=== PATIENT | male | born 1935 | race Caucasian/White ===

== ENCOUNTER 2018-06-27 11:49 | Day surgery (SDC) | payer MEDICARE ==
[~2018-06-27] VITALS: Ht 175.3 cm; Wt 79.4 kg
[~2018-06-27 11:49] MED LIST: AMLODIPINE5 MG PO; ASPIRIN LOW DOS81 M2 PO; CLOPIDOGREL75 MG PO; COQ10200 MG PO; CRESTOR10 MG PO; L-ARGININE500 M2 PO; LISINOPRIL20 MG PO; MULTI VIT PO; OMEPRAZOLE20 M2 PO; TAMSULOSIN HCL0.4 MG PO; TRAMADOL HCL50 MG PO; VIAGRA100 MG PO
[2018-06-27 15:03] VITALS: BP 143/72
== END 2018-06-27 15:10 | disposition home or self-care (01) ==
LOC: ENDO 11:49 → ORM 16:05 → ENDO 16:50 → ORM 17:05 → ENDO 17:15 → ORM 17:30 → ENDO 17:55
PROVIDERS: ATTEND Internal Medicine Gastroenterology
PROC: 0DB58ZX Excision of Esophagus, Via Natural or Artificial Opening Endoscopic, Diagnostic (ICD-10-PCS; principal; 2018-06-27)
DX: K22.70 Barrett's esophagus without dysplasia (principal); K29.70 Gastritis, unspecified, without bleeding; K44.9 Diaphragmatic hernia without obstruction or gangrene; K57.30 Diverticulosis of large intestine without perforation or abscess without bleeding; K64.8 Other hemorrhoids; I10 Essential (primary) hypertension; I25.10 Atherosclerotic heart disease of native coronary artery without angina pectoris; E78.00 Pure hypercholesterolemia, unspecified; I25.2 Old myocardial infarction; Z95.1 Presence of aortocoronary bypass graft; Z95.5 Presence of coronary angioplasty implant and graft; Z86.010 Personal history of colon polyps; Z79.899 Other long term (current) drug therapy